=== PATIENT | female | born 1980 ===

== ENCOUNTER 2017-06-30 22:01 | Inpatient (IN) | payer OTHER ==
--- NOTE | 2017-06-30 23:33 | PN ---
L&D Outpatient: Visit - Reproductive Information Estimated Due Date: 06/30/17 Gestational Age: 40 Weeks and 0 Days : 1 - Reason for Visit Visit Reason: contractions - Antepartal Records Antepartal Record: Reviewed, Uncomplicated - Patient History Patient History Significant: No L&D Outpatient: ROS - Review of Systems Constitutional: Comfortable CV Complaint: No Respiratory: Shortness of Breath: No Gastrointestinal: No Nausea/Vomiting Genitourinary: No Leaking Fluid Musculoskeletal: No Complaint Movement: Normal L&D Outpatient: Exam - Cervical Exam Cervical Exam: 50/0 at 10:22 275/0 at 11:22 - Abdominal Exam Abdomen Exam: Non-Tender - Membranes Membrane Status: Intact - Ultrasound/Biophysical Profile Ultrasound Status: Not Done L&D Outpatient: EFM - External Monitor Findings Baseline Heart Rate: 140 External Monitor Findings: Accelerations Present, Variability Moderate External Monitor Findings Comment: q 5-8 ' ctx L&D Outpatient: Asses/Plan - Discharge Diagnosis Discharge Diagnosis: Other - latent phase labor/ keep outpatient until labor
--- NOTE | 2017-07-01 02:41 | HP ---
General Information - General Information Maternal Age: 36 Grav: 1 Para: 0 SAB: 0 IEA: 0 Estimated Due Date: 06/30/17 Determined By: Early Ultrasound Gestational Age in Weeks and Days: 40 Weeks and 0 Days Maternal Blood Type and Rh: A Positive - Results this Serology/RPR Result: Non-Reactive Rubella Result: Immune HBsAg Result: Negative HIV Result: Negative GBS Culture Result: Negative Past Medical History Pertinent Past Medical History: Non-Contributory Past Surgical History Comment: appendectomy 2006 jaw surgery 2013 excision lipoma neck 2017 Pertinent Family History: Non-Contributory Review of Systems Constitutional: Uncomfortable CV Complaint: No Respiratory: Shortness of Breath: No Gastrointestinal: No Nausea/Vomiting Genitourinary: No Leaking Fluid Musculoskeletal: No Complaint Neurological: No Headache Movement: Normal Exam Allergies/Adverse Reactions: Allergies No Known Allergies Allergy (Verified 06/30/17 22:29) T 97.5 BP : 102/67 P : 67 - Measurements Height: 5 ft 4.57 in Weight: 138 lb Weight in lbs: 138 Body Mass Index (BMI): 23.2 Pre- Weight: 110 lb Weight Gained This : 28 lbs and 0 ozs - Exam Abdomen: No Upper Quadrant Pain Breast: Breast Exam Deferred CVA: No CVA Tenderness Extremities: No Edema Heart: Normal Rhythm/Heart Sounds HEENT: No Significant Findings Lungs: Clear Bilaterally Rectal: Rectal Exam Deferred EFM Findings - External Monitor Findings Baseline Heart Rate: 140 External Monitor Findings: Accelerations Present, Variability Moderate Contractions: Regular, Moderate, 45-90 Seconds Contraction Frequency: 4' Assessment/Plan - Plan Plan: Active Labor - desires epidural
[2017-07-01] MEDS ORDERED: OBEPIDURAL* 250 ML EPIDURAL ONE (02:42)
[2017-07-01 02:44] LABS: ABS Basophils 0 10^3/ul (0-0.2); ABS Eosinophils 0 10^3/ul (0-0.6); ABS Lymphocytes 1.7 10^3/ul (1.0-4.8); ABS Monocytes 0.7 10^3/ul (0-0.8); ABS Neutrophils 8.8 10^3/ul (1.5-7.7); ABS Nucleated RBC 0 10^3/ul; Eosinophil % 0.4 % (0-6); Hematocrit 36 % (35-47); Hemoglobin 12.2 g/dl (12.0-16.0); Lymphocyte % 15.3 % (25-47); Mean Corpuscular HGB Conc 34 g/dl (31-36); Mean Corpuscular Hemoglobin 32 pg (27-31); Mean Corpuscular Volume 95 fL (80-97); Mean Platelet Volume 7 um3 (7.4-10.4); Nucleated Red Blood Cells % 0.1; Platelet Count 203 10^3/ul (150-450); Red Blood Count 3.82 10^6/ul (4.0-5.4); Red Cell Distribution Width 14 % (10.5-15); White Blood Count 11.2 10^3/ul (3.5-10.8)
[2017-07-01] MEDS ORDERED: Sodium Citrate/Citric Acid* 15 ML UDC PO PRN (03:21)
[2017-07-01] MEDS ORDERED: Phenylephrine IV* 40 MCG/ML 10 ML SYRINGE IV PUSH PRN ×2 (03:21)
[2017-07-01] MEDS ORDERED: OBEPIDURAL* 250 ML EPIDURAL SCH (04:00)
[2017-07-01] MEDS ORDERED: Oxytocin in LR* 20 UNITS/1,000 ML BAG IVPB ONE (20:59)
[2017-07-01] MEDS ORDERED: Dibucaine 1% 28.35 GM TUBE PR PRN (21:28)
[2017-07-01] MEDS ORDERED: Glycerin ADULT SUPP PR PRN (21:28)
[2017-07-01] MEDS ORDERED: Misoprostol TAB* 200 MCG PR ONE (21:28)
[2017-07-01] MEDS ORDERED: Witch Hazel PAD* JAR TOPICAL PRN (21:28)
[2017-07-01] MEDS ORDERED: Acetaminophen TAB* 325 MG PO PRN (21:28)
[2017-07-01] MEDS ORDERED: Ammonia Inhalant* 1 EA AMP ONE (23:36)
[2017-07-02 07:10] LABS: ABS Basophils 0 10^3/ul (0-0.2); ABS Eosinophils 0 10^3/ul (0-0.6); ABS Lymphocytes 1.9 10^3/ul (1.0-4.8); ABS Nucleated RBC 0 10^3/ul; Eosinophil % 0.2 % (0-6); Hematocrit 25 % (35-47); Hemoglobin 8.4 g/dl (12.0-16.0); Lymphocyte % 9.8 % (25-47); Mean Corpuscular HGB Conc 33 g/dl (31-36); Mean Corpuscular Hemoglobin 32 pg (27-31); Mean Corpuscular Volume 97 fL (80-97); Mean Platelet Volume 7 um3 (7.4-10.4); Nucleated Red Blood Cells % 0; Platelet Count 171 10^3/ul (150-450); Red Blood Count 2.62 10^6/ul (4.0-5.4); Red Cell Distribution Width 14 % (10.5-15); White Blood Count 18.9 10^3/ul (3.5-10.8)
[2017-07-02] MEDS: Ibuprofen TAB* 600 MG PO PRN ×3 (07:13→21:37)
[2017-07-02] MEDS ORDERED: Simethicone TAB* 80 MG TAB.CHEW PO SCH (08:30)
[2017-07-02] MEDS: Docusate CAP* 100 MG PO SCH ×3 (11:00→20:40)
[2017-07-02] MEDS: Ferrous Gluconate TAB* 324 MG TAB PO SCH ×2 (11:00→20:40)
[2017-07-03 07:35] VITALS: BP 99/63
[2017-07-03] MEDS: Ferrous Gluconate TAB* 324 MG TAB PO SCH (09:07)
[2017-07-03] MEDS: Docusate CAP* 100 MG PO SCH (09:08)
== END 2017-07-03 13:15 | disposition home or self-care (01) | DRG 775 ==
LOC: MCHOBOUT 22:01 → MCHOB 07-01 02:30
PROVIDERS: ADMIT Obstetrics & Gynecology; ATTEND Obstetrics & Gynecology
PROC: 3E033VJ Introduction of Other Hormone into Peripheral Vein, Percutaneous Approach (ICD-10-PCS; principal; 2017-07-03)
PROC: 10D07Z6 Extraction of Products of Conception, Vacuum, Via Natural or Artificial Opening (ICD-10-PCS; 2017-07-03)
PROC: 4A1HX4Z Monitoring of Products of Conception, Cardiac Electrical Activity, External Approach (ICD-10-PCS; 2017-07-03)
PROC: 0W8NXZZ Division of Female Perineum, External Approach (ICD-10-PCS; 2017-07-03)
DX: O48.0 Post-term pregnancy (principal); O90.81 Anemia of the puerperium; Z37.0 Single live birth; Z3A.40 40 weeks gestation of pregnancy
CPT/HCPCS: 36415; 85025; 86850; 86900; 86901; A9270-GY